=== PATIENT | female | born 1990 | race Caucasian/White ===

== ENCOUNTER 2018-02-27 16:01 | Emergency (ER) | payer BC ==
[2018-02-27 17:04] VITALS: BP 141/78
[2018-02-27] MEDS ORDERED: Ibuprofen TAB* 600 MG PO ONE (17:22)
--- NOTE | 2018-02-27 19:08 | UC ---
Throat Pain/Nasal Jeovanny HPI - HPI Summary HPI Summary: 27-year-old woman comes in with chief complaint of cough congestion sore throat. Been going on for 2 days. Feels fatigued. No posterior neck pain. No stiff neck. She's not tried any [id number] remedies. No sick contacts. She does have an IUD occasionally she gets some discomfort about once a day. He has no pelvic or abdominal pain now no apartment vaginal discharge no dysuria no diarrhea. - History of Current Complaint Chief Complaint: UCGeneralIllness Stated Complaint: COUGH, AND FEVER Time Seen by Provider: 02/27/18 17:19 Pain Intensity: 5 - Allergies/Home Medications Allergies/Adverse Reactions: Allergies Allergy/AdvReac Type Severity Reaction Status Date / Time No Known Allergies Allergy Verified 02/27/18 17:04 Home Medications: Home Medications Ibuprofen TAB* [Motrin TAB* 400 MG] 400 mg PO Q6H PRN 02/27/18 [History Confirmed 02/27/18] Levonorgestrel (Iud) [Mirena IUD] 20 mcg IU DAILY 02/27/18 [History Confirmed ] Multivitamin [Multivitamins] 1 cap PO DAILY 02/27/18 [History Confirmed 02/27/18 ] PMH/Surg Hx/FS Hx/Imm Hx Previously Healthy: Yes - Surgical History Surgical History: None - Family History Known Family History: Positive: Unknown - Social History Alcohol Use: Weekly Substance Use Type: None Smoking Status (MU): Never Smoked Tobacco Review of Systems Constitutional: Fever, Chills, Fatigue Skin: Negative Eyes: Negative ENT: Sore Throat, Nasal Discharge, Sinus Congestion Respiratory: Cough Cardiovascular: Negative Gastrointestinal: Negative Genitourinary: Negative Motor: Negative Neurovascular: Negative Musculoskeletal: Negative Neurological: Negative Psychological: Negative Is Patient Immunocompromised?: No All Other Systems Reviewed And Are Negative: Yes Physical Exam Triage Information Reviewed: Yes Appearance: No Pain Distress, Well-Nourished, Ill-Appearing - MILD Vital Signs: Initial Vital Signs Temp 102.9 F 02/27/18 16:57 Pulse 122 02/27/18 16:57 Resp 16 02/27/18 16:57 BP 141/78 02/27/18 16:57 Pulse Ox 96 02/27/18 16:57 Vital Signs Reviewed: Yes Eye Exam: Normal ENT: Positive: Pharyngeal erythema, Nasal congestion, Nasal drainage, TMs normal Neck exam: Normal Neck: Positive: Supple Respiratory: Positive: Lungs clear, Normal breath sounds, No respiratory distress Cardiovascular: Positive: Tachycardia Abdomen Description: Positive: Nontender, Soft Bowel Sounds: Positive: Present Musculoskeletal Exam: Normal Musculoskeletal: Positive: Strength Intact, ROM Intact Neurological Exam: Normal Neurological: Positive: Alert, Muscle Tone Normal Psychological Exam: Normal Psychological: Positive: Normal Response To Family, Age Appropriate Behavior Skin Exam: Normal Throat Pain/Nasal Course/Dx - Course Course Of Treatment: Rapid strep and rapid influenza were both negative. Patient got ibuprofen 600 mg by mouth in the clinic and she does feel slightly improved. We discussed viral and bacterial infections at this time we will treat this as a viral infection. Patient to get rechecked if she is not improving or worsening. - Differential Dx/Diagnosis Provider Diagnoses: FEBRILE ILLNESS. UPPER RESPIRATORY TRACT INFECTION Discharge - Sign-Out/Discharge Documenting (check all that apply): Patient Departure All imaging exams completed and their final reports reviewed: No Studies - Discharge Plan Condition: Stable Disposition: HOME Patient Education Materials: Fever in Adults (ED), Upper Respiratory Infection (ED), Ibuprofen (By mouth) Referrals: Terrell Canales MD [Primary Care Provider] - Additional Instructions: FOLLOW UP WITH YOUR DOCTOR IF NOT COMPLETELY IMPROVED. GET RECHECKED FOR ANY WORSENING OF YOUR CONDITION OR QUESTIONS OR CONCERNS. - Billing Disposition and Condition Condition: STABLE Disposition: Home
== END 2018-02-27 19:10 | disposition home or self-care (01) ==
LOC: UCEAST 16:01
DX: J06.9 Acute upper respiratory infection, unspecified (principal); R50.9 Fever, unspecified
CPT/HCPCS: 87651; 99212; A9270-GY; G0463